=== PATIENT | male | born 1995 | race Caucasian/White ===

== ENCOUNTER 2016-07-20 21:21 | Emergency (ER) | payer SELFPAY ==
--- NOTE | 2016-07-21 00:17 | ER Document Report ---
HPI - HPI Patient complains to provider of: chest pain when mad Onset: Other - Off and on for the last 2 weeks Onset/Duration: Intermittent Quality of pain: Sharp Severity: None Pain Level: Denies Associated Symptoms: Chest pain - When angry. denies: None, Allergy/hay fever, Body/muscle aches, Chills, Nonproductive cough, Productive cough, Diarrhea, Drooling, Earache, Fever, Headache, Hoarseness, Hurts to breath, Leg swelling, Nausea, Vomiting, Rhinnorhea, Sinus pain/drainage, Shortness of breath, Slow to respond, Sore throat, Sweating, Weakness, Other Exacerbated by: Other - Anger Relieved by: Denies Similar symptoms previously: Yes Recently seen / treated by doctor: No - ROS ROS below otherwise negative: Yes - CONSTITUTIONAL Constitutional: DENIES: Fever, Chills - EENT EENT: DENIES: Sore Throat, Ear Pain, Nasal Drainage-Clear, Nasal Drainage- Purulent, Congestion, Eye problems - NEURO Neurology: DENIES: Headache, Weakness, Vision blurred, Dizzinesss / Vertigo - CARDIOVASCULAR Cardiovascular: DENIES: Chest pain - Complained of chest pain earlier but no chest pain at this time no chest tenderness at this time states the pain is only when he is angry - RESPIRATORY Respiratory: DENIES: Trouble Breathing, Coughing - GASTROINTESTINAL Gastrointestinal: DENIES: Abdominal Pain, Nausea, Patient vomiting, Diarrhea, Constipation, Black / Bloody Stools - URINARY Urinary: DENIES: Dysuria, Urgency, Frequency - REPRODUCTIVE Reproductive: DENIES: :, Postmenopausal, Abnormal bleeding / discharge - MUSCULOSKELETAL Musculoskeletal: DENIES: Extremity pain, Back Pain, Neck Pain, Swelling - DERM Skin Color: Normal Skin Problems: None Past Medical History - General Information source: Patient - Social History Smoking Status: Current Every Day Smoker Cigarette use (# per day): Yes - pack per day Chew tobacco use (# tins/day): No Smoking Education Provided: Yes - less than a minute Frequency of alcohol use: None Drug Abuse: None Occupation: [employer] Family History: CAD, Hyperlipidemia, Hypertension Patient has suicidal ideation: No Patient has homicidal ideation: No - Past Medical History Cardiac Medical History: Reports: None Pulmonary Medical History: Reports: None EENT Medical History: Reports: None Neurological Medical History: Reports: None Endocrine Medical History: Reports: None Renal/ Medical History: Reports: None Malignancy Medical History: Reports None GI Medical History: Reports: None Musculoskeltal Medical History: Reports Hx Musculoskeletal Trauma Skin Medical History: Reports None Psychiatric Medical History: Reports: Hx Anxiety, Hx Depression Traumatic Medical History: Reports: Hx Fractures - Knee Infectious Medical History: Reports: None Past Surgical History: Reports: Hx Orthopedic Surgery - Left knee - Immunizations Immunizations up to date: Yes Hx Diphtheria, Pertussis, Tetanus Vaccination: Yes Vertical Provider Document - CONSTITUTIONAL Agree With Documented VS: Yes Exam Limitations: No Limitations General Appearance: WD/WN, No Apparent Distress - INFECTION CONTROL TRAVEL OUTSIDE OF THE [place] IN LAST 30 DAYS: No - HEENT HEENT: Atraumatic, Normal ENT Exam, Normocephalic, PERRLA - NECK Neck: Normal Inspection, Supple, Thyroid Normal - RESPIRATORY Respiratory: Breath Sounds Normal, No Respiratory Distress, Chest Non-Tender - CARDIOVASCULAR Cardiovascular: Regular Rate, Regular Rhythm, No Murmur - GI/ABDOMEN Gastrointestinal: Abdomen Soft, Abdomen Non-Tender, No Organomegaly, Normal Bowel Sounds - BACK Back: Normal Inspection - MUSCULOSKELETAL/EXTREMETIES Musculoskeletal/Extremeties: MAEW, FROM, Non-Tender - NEURO Level of Consciousness: Awake, Alert, Appropriate - DERM Integumentary: Warm, Dry, No Rash Course - Re-evaluation Re-evalutation: 07/21/16 00:19 This patient has a completely negative assessment. He states that he only has chest pain when he is angry. He has no pain at this time no tenderness at this time has full range of motion of both shoulders no tenderness to touch lung sounds are clear we'll discharge home to follow-up with his primary doctor and to get a referral to a mental health worker to help him with his anxiety and anger issues. - Vital Signs Vital signs: Temp Pulse Resp BP Pulse Ox 97.8 F 67 18 125/81 07/20/16 22:35 07/20/16 22:35 07/20/16 22:35 07/20/16 22:35 - Diagnostic Test Radiology reviewed: Image reviewed, Reports reviewed Discharge - Discharge Clinical Impression: Chest pain of unknown etiology, Anxiety Condition: Stable Disposition: HOME, SELF-CARE Additional Instructions: CHEST PAIN OF UNCLEAR CAUSE: The exact cause of your chest pain isn't clear. Fortunately, there is no evidence of a dangerous medical condition. Further testing may be required to find the source of the pain. Most often, we find that this pain is coming from the chest wall -- the muscles or rib joints in the chest. But chest pain can come from the lung and lung lining, the esophagus, the heart valves or heart lining, and even the stomach or gallbladder. Rest. Eat lightly until the pain is gone. We may prescribe medicine for pain and inflammation. You should call the physician immediately if the pain radiates to the shoulder, jaw or arms; if you start to run a fever or develop a cough; or if you develop shortness of breath, or other new or alarming symptoms. NORMAL EXAM AND WORKUP: At this time, your examination show no significant abnormality. No significant abnormal physical findings were noted. Although your examination and all studies that were ordered showed no significant abnormal finding, there are no examinations and no studies that are 100% accurate. There is always the possibility that some abnormality could exist and not be detected with physical examination or within the limits and capabilities of laboratory and other studies. You should return or follow up as you were instructed on your visit today for further evaluation if your symptoms do not resolve. Anxiety The physician feels that some of your health problems are being caused by anxiety. Anxiety affects your health in many ways. Anxiety alone can cause palpitations, sweats, chest pains, abdominal pains, shortness of breath, and headaches. It contributes to ulcer disease, high blood pressure, irritable bowel syndrome, and has been shown to cause flare-ups of many other diseases. Anxiety is not a simple disorder to treat. If the anxiety is due to recent life stresses, you may simply need time to "work through" the changes. If the anxiety is due to an underlying unhappiness with yourself or due to psychiatric disturbance, professional help will be needed. Your physician can refer you for further help if needed. Anti-anxiety medication is occasionally given if the stress is acute or if you are having trouble sleeping. Chronic or frequent use of these medications is not a good idea because the body becomes reliant on it, preventing you from dealing with life's normal stresses. Ibuprofen Ibuprofen is an excellent, safe drug for pain control. In addition, it has potent antiinflammatory effects which are beneficial, especially in the treatment of injuries, arthritis, or tendonitis. It's best to take ibuprofen with food. Persons with ulcer disease or allergy to aspirin should notify their physician of this before taking ibuprofen. Take the medication exactly as prescribed. Don't take additional doses unless instructed to do so by your doctor. If you develop wheezing, shortness of breath, hives, faintness, stomach pain, vomiting, or dark black stools, return for re-evaluation at once. Acetaminophen Acetaminophen may be taken for pain relief or fever control. It's much safer than aspirin, offering a wider range of "safe" dosages. It is safe during . Some brand names are Tylenol, Panadol, Datril, Anacin 3, Tempra, and Liquiprin. Acetaminophen can be repeated every four hours. The following are maximum recommended dosages: WEIGHT Dose Drops Elixir Chewable( 80mg) (LBS.) drprs=droppers tsp=teaspoon 6 40 mg .4 ml (1/2) 6-11 80 mg .8 ml (full) 1/2 tsp 1 tab 12-16 120 mg 1 1/2 drprs 3/4 tsp 1 1/2 tabs 17-23 160 mg 2 drprs 1 tsp 2 tabs 24-30 240 mg 3 drprs 1 1/2 tsp 3 tabs 30-35 320 mg 2 tsp 4 tabs 36-41 360 mg 2 1/4 tsp 4 1 /2 tabs 42-47 400 mg 2 1/2 tsp 5 tabs 48-53 480 mg 3 tsp 6 tabs 54-59 520 mg 3 1/4 tsp 6 1 /2 tabs 60-64 560 mg 3 1/2 tsp 7 tabs 65-70 600 mg 3 3/4 tsp 7 1 /2 tabs 71-76 640 mg 4 tsp 8 tabs 77-82 720 mg 4 1/2 tsp 9 tabs 83-88 800 mg 5 tsp 10 tabs >89 pounds or adults 650 mg to 900 mg Acetaminophen can be repeated every four hours. Maximum daily dose not to exceed 4000 mg. These maximum recommended dosages are slightly higher than the dosages written on the product container, but these dosages are very safe and well below the toxic dosage for acetaminophen. Please call your primary doctor Friday morning and schedule a follow-up visit and have him help you to find a mental health worker to help you with your anxiety and anger issues. FOLLOW-UP CARE: If you have been referred to a physician for follow-up care, call the physician s office for an appointment as you were instructed or within the next two days. If you experience worsening or a significant change in your symptoms, notify the physician immediately or return to the Emergency Department at any time for re-evaluation. Forms: Return to Work, Smoking Cessation Education
[2016-07-21 00:20] VITALS: BP 127/86
== END 2016-07-21 00:25 | disposition home or self-care (01) ==
LOC: ER 21:21
DX: F41.9 Anxiety disorder, unspecified (principal); R07.9 Chest pain, unspecified; F17.210 Nicotine dependence, cigarettes, uncomplicated
CPT/HCPCS: 99284

== ENCOUNTER 2016-08-01 00:51 | Emergency (ER) | payer SELFPAY ==
[2016-08-01] MEDS ORDERED: ONDANSETRON ODT 4 MG TAB (6 TAB/DSPK) PO PRN (02:25)
--- NOTE | 2016-08-01 02:29 | ER Document Report ---
ED General - General Chief Complaint: Nausea/Vomiting Stated Complaint: BLOODY VOMIT/FEVER Notes: Patient is a 20-year-old male presents with complaint of vomiting once. He says he saw a small amount of red and it but is unsure if it was blood or not. He therefore came to the ER. He said immediately after vomiting he felt warm and felt as of yet of fever. He currently does not feel that way. He never had pain. No diarrhea. Has not seen blood in his stools. He has no other complaints at this time TRAVEL OUTSIDE OF THE [place] IN LAST 30 DAYS: No - Related Data Allergies/Adverse Reactions: No Known Allergies Allergy (Unverified 07/20/16 22:43) Past Medical History - Social History Smoking Status: Current Every Day Smoker Chew tobacco use (# tins/day): No Frequency of alcohol use: None Drug Abuse: None Family History: CAD, Hyperlipidemia, Hypertension Patient has suicidal ideation: No Patient has homicidal ideation: No Renal/ Medical History: Denies: Hx Peritoneal Dialysis Musculoskeltal Medical History: Reports Hx Musculoskeletal Trauma Psychiatric Medical History: Reports: Hx Anxiety, Hx Depression Traumatic Medical History: Reports: Hx Fractures - Knee Past Surgical History: Reports: Hx Orthopedic Surgery - Left knee - Immunizations Immunizations up to date: Yes Hx Diphtheria, Pertussis, Tetanus Vaccination: Yes Review of Systems - Review of Systems Notes: My Normal Review Basic REVIEW OF SYSTEMS: CONSTITUTIONAL : Denies fever, chills, or sweats. Denies recent illness. EENT: Denies eye, ear, throat, or mouth pain or symptoms. Denies nasal or sinus congestion. RESPIRATORY: Denies cough, cold, or chest congestion. Denies shortness of breath, difficulty breathing, or wheezing. GASTROINTESTINAL: Denies abdominal pain. Vomiting once. Denies constipation. Last BM: GENITOURINARY: Denies difficulty urinating, painful urination, burning, frequency, or blood in urine. MUSCULOSKELETAL: Denies neck or back pain or joint pain or swelling. SKIN: Denies rash or skin lesions. HEMATOLOGIC : Denies easy bruising or bleeding. NEUROLOGICAL: Denies altered mental status or loss of consciousness. Denies headache. Denies weakness or paralysis or loss of use of either side. Denies problems with gait or speech. Denies sensory or motor loss. ALL OTHER SYSTEMS REVIEWED AND NEGATIVE. Physical Exam - Vital signs Vitals: Temp Pulse BP Pulse Ox 97.2 F 77 142/90 H 97 08/01/16 00:56 08/01/16 00:56 08/01/16 00:56 08/01/16 00:56 - Notes Notes: General Appearance: Well nourished, alert, cooperative, no acute distress, no obvious discomfort. Well-appearing. Vitals: reviewed, See vital signs table. Head: no swelling or tenderness to the head Eyes: PERRL, EOMI, Conjuctiva clear Mouth: No decreasd moisture Neck: Supple, no neck tenderness, No thyromegaly Lungs: No wheezing, No rales, No rhonci, No accessory muscle use, good air exchange bilaterally. Heart: Normal rate, Regular rythm, No murmur, no rub Abdomen: Normal BS, soft, No rigidity, No abdominal tenderness, No guarding, no rebound, no abdominal masses, no organomegaly Extremities: strength 5/5 in all extremities, good pulses in all extremities, no swelling or tenderness in the extremities, no edema. Skin: warm, dry, appropriate color, no rash Neuro: speech clear, oriented x 3, normal affect, responds appropriately to questions. Course - Vital Signs Vital signs: Temp Pulse Resp BP Pulse Ox 97.5 F 56 L 16 111/76 97 08/01/16 02:36 08/01/16 02:36 08/01/16 02:36 08/01/16 02:36 08/01/16 02:36 - Transfer of Care Notes: 08/01/16 05:14 Patient had one episode of vomiting this had no further symptoms. Has no pain. He looks well. I feel he is safe to be discharged home. I strongly encouraged return to ER if his intractable vomiting, any recurrence of blood in his vomit, abdominal pain, or if he feels unwell. Patient agrees with plan and will be discharged home. Discharge - Discharge Clinical Impression: Vomiting Qualifiers: Vomiting type: unspecified Vomiting Intractability: non-intractable Nausea presence: with nausea Qualified Code(s): R11.2 - Nausea with vomiting, unspecified Condition: Good Disposition: HOME, SELF-CARE Additional Instructions: Please take the Zofran every 4 hours as needed for nausea. These return to the ER immediately if you have recurrent vomiting that has any blood in it. Please return to the ER immediately if you fevers or abdominal pain. Please eat a very bland diet. Please avoid spicy foods or fatty foods for at least the next 24 hours. Forms: Return to Work
[2016-08-01 02:40] VITALS: BP 111/76
== END 2016-08-01 02:58 | disposition home or self-care (01) ==
LOC: ER 00:51
DX: R11.2 Nausea with vomiting, unspecified (principal); F17.200 Nicotine dependence, unspecified, uncomplicated
CPT/HCPCS: 99283

== ENCOUNTER 2016-09-04 22:53 | Emergency (ER) | payer BC ==
[2016-09-04 23:33] LABS: ABSOLUTE LYMPHOCYTES (AUTO) 1.2 10^3/uL (0.5-4.7); ABSOLUTE MONOCYTES (AUTO) 0.6 10^3/uL (0.1-1.4); ABSOLUTE NEUT (AUTO) 4.9 10^3/uL (1.7-8.2); BASOPHILS % (AUTO) 0.4 % (0-2); EOSINOPHILS % (AUTO) 0.3 % (0-6); HEMATOCRIT 40.3 % (37.9-51.0); HEMOGLOBIN 13.8 g/dL (13.5-17.0); HGB HCT DIFFERENCE 1.1; LYMPHOCYTES % (AUTO) 17.2 % (13-45); MEAN CORPUSCULAR HEMOGLOBIN 28.6 pg (27.0-33.4); MEAN CORPUSCULAR HGB CONC 34.2 g/dL (32.0-36.0); MEAN CORPUSCULAR VOLUME 84 fl (80-97); MONOCYTES % (AUTO) 9.3 % (3-13); RED CELL DISTRIBUTION WIDTH 12.9 % (11.5-14.0); SEGMENTED NEUTROPHILS % (AUTO) 72.8 % (42-78); WHITE BLOOD COUNT 6.7 10^3/uL (4.0-10.5)
[2016-09-05] MEDS ORDERED: FAMOTIDINE 20 MG TABLET PO ONE (00:01)
[2016-09-05] MEDS ORDERED: ONDANSETRON HCL INJ/PF 4 MG/2 ML SDV IV ONE (00:01)
[2016-09-05 00:14] LABS: ANION GAP 15 (5-19); CARBON DIOXIDE 27 mmol/L (22-30); CHLORIDE 103 mmol/L (98-107); SODIUM 145.4 mmol/L (137-145)
[2016-09-05 00:15] LABS: ALANINE AMINOTRANSFERASE 27 U/L (21-72); ALBUMIN 4.8 g/dL (3.5-5.0); ALKALINE PHOSPHATASE 68 U/L (38-126); ASPARTATE AMINO TRANSFERASE 15 U/L (17-59); BLOOD UREA NITROGEN 15 mg/dL (7-20); CALCIUM 9.9 mg/dL (8.4-10.2); GLUCOSE 93 mg/dL (75-110)
[2016-09-05 00:16] LABS: BILIRUBIN,DIRECT 0.1 mg/dL (0.0-0.4); TOTAL PROTEIN 8.1 g/dL (6.3-8.2)
--- NOTE | 2016-09-05 00:16 | ER Document Report ---
ED General - General Chief Complaint: Vomiting Stated Complaint: VOMITING BLOOD Notes: Patient is a 20-year-old male without past medical history who presents after having an episode of vomiting in which the vomit contained a moderate amount of blood. States he vomited up maybe a quarter cup of blood one time and has not had any additional episodes of vomiting since that time. States that he occasionally uses aspirin but not to have a degree and does not use any additional NSAID. He does chew tobacco but has quit smoking. He denies any heavy alcohol use. No prior history of upper GI bleed although he was seen in July for an episode of hematemesis and he states he had not had recurrence until today. He has not followed up with his primary care doctor regarding these episodes. He is not taking anything to treat his symptoms. Nothing worsens the symptoms. He denies any focal abdominal pain, melena, hematochezia , but states he has had loose diarrhea today. TRAVEL OUTSIDE OF THE [place] IN LAST 30 DAYS: No - Related Data Allergies/Adverse Reactions: No Known Allergies Allergy (Verified 09/04/16 22:58) Home Medications: Current Home Medications No Home Medications 09/04/16 [History] Past Medical History - General Information source: Patient - Social History Smoking Status: Former Smoker Chew tobacco use (# tins/day): Yes Frequency of alcohol use: Occasional Drug Abuse: None Lives with: Spouse/Significant other Family History: CAD, Hyperlipidemia, Hypertension Patient has suicidal ideation: No Patient has homicidal ideation: No Renal/ Medical History: Denies: Hx Peritoneal Dialysis Musculoskeltal Medical History: Reports Hx Musculoskeletal Trauma Psychiatric Medical History: Reports: Hx Anxiety, Hx Depression Traumatic Medical History: Reports: Hx Fractures - Knee Past Surgical History: Reports: Hx Orthopedic Surgery - Left knee - Immunizations Immunizations up to date: Yes Hx Diphtheria, Pertussis, Tetanus Vaccination: Yes Review of Systems - Review of Systems Notes: Constitutional: Negative for fever. HENT: Negative for sore throat. Eyes: Negative for visual changes. Cardiovascular: Negative for chest pain. Respiratory: Negative for shortness of breath. Gastrointestinal: Negative for abdominal pain, positive for hematemesis diarrhea Genitourinary: Negative for dysuria. Musculoskeletal: Negative for back pain. Skin: Negative for rash. Neurological: Negative for headaches, weakness or numbness. 10 point ROS negative except as marked above and in HPI. Physical Exam - Vital signs Vitals: Temp Pulse Resp BP Pulse Ox 98.4 F 83 18 126/77 H 98 09/04/16 22:59 09/04/16 22:59 09/04/16 22:59 09/04/16 22:59 09/04/16 22:59 Interpretation: Normal Notes: PHYSICAL EXAMINATION: GENERAL: Well-appearing, well-nourished and in no acute distress. HEAD: Atraumatic, normocephalic. EYES: Pupils equal round and reactive to light, extraocular movements intact, sclera anicteric, conjunctiva are normal. ENT: nares patent, oropharynx clear without exudates. Moist mucous membranes. NECK: Normal range of motion, supple without lymphadenopathy LUNGS: Breath sounds clear to auscultation bilaterally and equal. No wheezes rales or rhonchi. HEART: Regular rate and rhythm without murmurs ABDOMEN: Soft, nontender, normoactive bowel sounds. No guarding, no rebound. No masses appreciated. EXTREMITIES: Normal range of motion, no pitting or edema. No cyanosis. NEUROLOGICAL: No focal neurological deficits. Moves all extremities spontaneously and on command. PSYCH: Normal mood, normal affect. SKIN: Warm, Dry, normal turgor, no rashes or lesions noted. Course - Re-evaluation Re-evalutation: 09/05/16 00:14 Patient presents with one episode of vomiting mixed with blood. This is the second ounces having the patient in 6 weeks. At time of assessment he denies any symptoms and is otherwise well in appearance, vitals within normal limits. He has no focal abdominal tenderness on examination. He does have some tonsillar hypertrophy but denies any sore throat. He has no tonsillar exudates and his uvula is midline. His clinical presentation is not consistent with strep will not test. Patient states that his vomitus was mostly vomit with some blood mixed in. He has not had any further episodes for over 2 hours at time of presentation. CBC within normal limits without evidence of anemia. Will recheck CBC 2 hours after initial blood draw to ensure the patient is not having a significant decrease in hemoglobin. If this is unremarkable, will plan to initiate H2 blockers, and I have encouraged the patient follow-up closely as outpatient provider for GI referral for consideration of upper endoscopy. I have also clearly reviewed with patient that should he have any further episodes like this he immediately needs to return to the emergency department. At this point I do not suspect hemodynamically significant upper GI bleed based on patient's overall well appearance, absence of risk factors, reassuring vitals, and normal hemoglobin at time of presentation. 09/05/16 01:46 Patient's hemoglobin has had minimal change total of a 1 point drop since initial blood draw. Patient has been observed now for a total of 3 hours and has remained without any further episodes of vomiting. This burch a total of 5- 1/2 hours his last episode of vomiting. Have discussed at length with this patient the importance of immediately return to the emergency department immediately if he has any further episodes of vomiting containing blood, passes out, or has any other symptoms that are worrisome to him. His vitals have remained normal limits. On reassessment he is in the exam room joking with his friends, laughing and in no discomfort. - Vital Signs Vital signs: Temp Pulse Resp BP Pulse Ox 98.4 F 83 18 123/93 H 99 09/04/16 22:59 09/04/16 22:59 09/04/16 22:59 09/05/16 01:01 09/05/16 01:16 - Laboratory Result Diagrams: 09/05/16 01:15 09/04/16 23:13 Laboratory results interpreted by me: 09/04/16 09/05/16 23:13 01:15 WBC 10.7 H Hgb 12.8 L Hct 36.9 L Sodium 145.4 H AST 15 L Discharge - Discharge Clinical Impression: Hemoptysis Condition: Good Disposition: HOME, SELF-CARE Additional Instructions: You need to contact her primary care doctor to arrange for a GI follow-up for consideration of upper endoscopy. You need to return to the emergency department immediately if you have any further episodes of vomiting blood. Do not delay, come back right away as you could get very ill if you continue to vomit blood. You should also begin taking a medication called famotidine which can be purchased [id number]. Take 40 mg in the morning and 40 mg at night. Take this every day and do not stop until directed by your primary doctor.
[2016-09-05 01:23] LABS: HEMATOCRIT 36.9 % (37.9-51.0); HEMOGLOBIN 12.8 g/dL (13.5-17.0); HGB HCT DIFFERENCE 1.5; MEAN CORPUSCULAR HGB CONC 34.7 g/dL (32.0-36.0); MEAN CORPUSCULAR VOLUME 84 fl (80-97); RED BLOOD COUNT 4.41 10^6/uL (4.35-5.55); RED CELL DISTRIBUTION WIDTH 12.8 % (11.5-14.0); WHITE BLOOD COUNT 10.7 10^3/uL (4.0-10.5)
[2016-09-05 01:55] VITALS: BP 123/93
[2016-09-05 03:24] LABS: PROTHROMBIN TIME 13.9 SEC (11.4-15.4)
== END 2016-09-05 02:03 | disposition home or self-care (01) ==
LOC: ER 22:53
DX: R04.2 Hemoptysis (principal); K92.0 Hematemesis; R19.7 Diarrhea, unspecified; J35.1 Hypertrophy of tonsils; Z72.0 Tobacco use; Z87.891 Personal history of nicotine dependence
CPT/HCPCS: 99285; 96374; 36415; 85025; 85027; 85610; 80053; J2405